=== PATIENT | female | born 1985 | race Hispanic/Latino ===

== ENCOUNTER 2019-08-24 18:20 | Emergency (ER) | payer OTHER ==
[2019-08-24] MEDS ORDERED: LIDOCAINE HCL 1% 20 ML VIAL ONE (19:15)
[2019-08-24] MEDS ORDERED: ACETAMINOPHEN EXTRA STRENGTH 500 MG TABLET ONE (19:55)
[2019-08-24] MEDS ORDERED: OCTYL 2-CYANOACRYLATE 1 EACH TP ONE ×2 (19:58→20:18)
[2019-08-24] MEDS ORDERED: CEPHALEXIN 500 MG CAPSULE ONE (20:47)
[2019-08-24] MEDS ORDERED: TETANUS/DIPHTHERIA TOXOID [ADULT] 0.5 ML VIAL IM ONE (20:49)
== END 2019-08-24 21:01 | disposition home or self-care (01) ==
LOC: EDH 18:20
DX: S62.633B Displaced fracture of distal phalanx of left middle finger, initial encounter for open fracture (principal); Z72.0 Tobacco use; Z98.890 Other specified postprocedural states; W20.8XXA Other cause of strike by thrown, projected or falling object, initial encounter; Y93.89 Activity, other specified; Y92.89 Other specified places as the place of occurrence of the external cause; Y99.8 Other external cause status
CPT/HCPCS: 29130; 73130; 90471; 90714